=== PATIENT | male | born 1985 | race Caucasian/White ===

== ENCOUNTER → 2017-07-20 | Outpatient (CLI) | payer OTHER | LOC: M WUC 18:43 | DX: M79.641 Pain in right hand (principal) | CPT/HCPCS: 73130 ==

== ENCOUNTER → 2019-01-11 | Outpatient (REF) | payer OTHER ==
[2019-01-12 14:49] LABS: ALBUMIN 4.1 GM/DL (3.2-5.2); ALT/SGPT 26 U/L (12-78); BILIRUBIN,TOTAL 1.6 MG/DL (0.2-1.0); BLOOD UREA NITROGEN 10 MG/DL (7-18); CALCIUM LEVEL 8.8 MG/DL (8.5-10.1); CARBON DIOXIDE LEVEL 29 MEQ/L (21-32); CHLORIDE LEVEL 107 MEQ/L (98-107); CHOLESTEROL LEVEL 146 MG/DL (<200); CHOLESTEROL RISK RATIO 3.476 (<5); FREE T4 1.15 NG/DL (0.76-1.46); GLOMERULAR FILTRATION RATE > 60.0 (>60); GLUCOSE, FASTING 90 MG/DL (70-100); HDL CHOLESTEROL 42 MG/DL (>40); LDL CHOLESTEROL 81 MG/DL (<100); NON-HDL-C 104 MG/DL; PHOSPHORUS LEVEL 3.2 MG/DL (2.5-4.9); POTASSIUM SERUM 3.9 MEQ/L (3.5-5.1); SODIUM LEVEL 141 MEQ/L (136-145); THYROID STIMULATING HORMONE 0.858 uIU/ML (0.358-3.740); TOTAL PROTEIN 6.8 GM/DL (6.4-8.2); TRIGLYCERIDES LEVEL 116 MG/DL (<150)
[2019-01-14 00:07] LABS: Lyme Disease IgG/IgM Antibodie <0.91 ISR (0.00-0.90); Lyme Disease IgM Ab Quantitati <0.80 index (0.00-0.79)
== END ==
LOC: M LABDRWAD 19:20
PROVIDERS: ATTEND Psychiatry & Neurology Child & Adolescent Psychiatry
DX: F33.9 Major depressive disorder, recurrent, unspecified (principal)

== ENCOUNTER → 2019-01-21 | Outpatient (CLI) | payer OTHER ==
--- NOTE | 2019-01-21 18:46 | ECGEPIP ---
[facility] Test Date: 2019-01-21 Pat Name: TAM MCELROY Department: Room: - Gender: Male Police Chief: KARINE : 1985 Requested By: Sonny Wynn Order Number: [id number] Reading MD: Fransisco Norman Measurements Intervals [place] Rate: 68 P: 55 MS: 141 QRS: 70 QRSD: 90 T: 50 QT: 375 QTc: 401 Interpretive Statements SINUS RHYTHM WITH SINUS ARRHYTHMIA Early repolarization. No prior ECG available for comparison at the time of interpretation. Electronically Signed on 01-21-2019 18:46:07 EDT by Fransisco Norman
== END ==
LOC: M LAB 09:17
PROVIDERS: ATTEND Psychiatry & Neurology Child & Adolescent Psychiatry
DX: F33.9 Major depressive disorder, recurrent, unspecified (principal)

== ENCOUNTER → 2019-01-31 | Outpatient (REF) | payer OTHER ==
[2019-01-31 17:56] LABS: BASO % 0.4 % (0.0-1.0); EOS # 0.1 10^3/uL (0.0-0.5); EOS % 1.1 % (0.0-3.0); HEMATOCRIT 49.2 % (42.0-52.0); HEMOGLOBIN 17.4 g/dl (13.5-17.5); LYMPH # 2.5 10^3/uL (1.5-5.0); LYMPH % 23.9 % (24.0-44.0); MEAN CORPUSCULAR HEMOGLOBIN 32.3 pg (27.0-33.0); MEAN CORPUSCULAR HGB CONC 35.4 g/dl (32.0-36.5); MEAN CORPUSCULAR VOLUME 91.4 fl (80.0-96.0); MONO # 0.6 10^3/uL (0.0-0.8); MONO % 5.2 % (0.0-5.0); NEUTROPHILS # 7.3 10^3/uL (1.5-8.5); NEUTROPHILS % 69.1 % (36.0-66.0); PLATELET COUNT, AUTOMATED 246 10^3/uL (150-450); RED BLOOD COUNT 5.38 10^6/uL (4.30-6.10); WHITE BLOOD COUNT 10.5 10^3/uL (4.0-10.0)
[2019-01-31 18:12] LABS: HEMOGLOBIN A1c 4.7 %
[2019-01-31 19:09] LABS: ERYTHROCYTE SEDIMENTATION RATE 2 mm/hr (0-15)
== END ==
LOC: M LABDRWAD 16:37
PROVIDERS: ATTEND Psychiatry & Neurology Child & Adolescent Psychiatry
DX: F33.9 Major depressive disorder, recurrent, unspecified (principal)

== ENCOUNTER → 2019-02-16 | Outpatient (REF) | payer OTHER | LOC: M SFHCADAM 14:52 | PROVIDERS: ATTEND Physician Assistant | DX: M25.541 Pain in joints of right hand (principal) ==

== ENCOUNTER → 2019-07-25 | Outpatient (CLI) | payer OTHER ==
[~2019-07-25] MED LIST: NICO7DIS24 TD; OXYC1TAB23 PO; SERT-138 PO
== END ==
LOC: M LABSMTC 11:33
PROVIDERS: ATTEND Anesthesiology
DX: Z01.818 Encounter for other preprocedural examination (principal); Z11.59 Encounter for screening for other viral diseases

== ENCOUNTER 2019-07-26 10:35 | Day surgery (SDC) | payer OTHER ==
[~2019-07-26] VITALS: Ht 172.7 cm; Wt 70.2 kg
[~2019-07-26 10:35] MED LIST changes: +LIDOCAINE 2% 100MG/5ML SDV (FOR ANES.) As Ordered ONE; +LR 1,000 ML IV ONE; +MIDAZOLAM INJ 2MG/2ML VIAL (J2250 PER 1MG) As Ordered ONE; +ONDANSETRON 4MG/2ML VIAL As Ordered ONE; +ceFAZolin SOD 2 GM in IV 1 EA IV ONE; +dexameTHASONE 4 MG/ML 1ML VIAL (J1100 PER 1MG) As Ordered ONE; +fentaNYL 100 MCG/2 ML INJECTION (J3010) As Ordered ONE; +propofoL 200 MG/20 ML VIAL As Ordered ONE
[2019-07-26] MEDS ORDERED: PHENYLephrine HCL 500 MCG/5 ML (100MCG/ML) SYRINGE (J2370) As Ordered ONE (10:58)
[2019-07-26] MEDS ORDERED: LIDOCAINE 2% 100MG/5ML SDV (FOR ANES.) As Ordered ONE (11:46)
[2019-07-26] MEDS ORDERED: BUPIVACAINE/EPIN 0.25% 30 ML VIAL As Ordered ONE (11:57)
[2019-07-26] MEDS ORDERED: HYDROmorphone HCL 2 MG/ML 1ML VIAL (J1170) As Ordered ONE (12:54)
[2019-07-26] MEDS ORDERED: ROCURONIUM BROMIDE 50 MG/5 ML VIAL As Ordered ONE (13:06)
[2019-07-26] MEDS ORDERED: ACETAMINOPHEN 1000MG 100ML IV BTL (OFIRMEV) (J0131 PER 10MG) As Ordered ONE (14:13)
[2019-07-26] MEDS ORDERED: SUGAMMADEX SODIUM 500 MG/5 ML VIAL (BRIDION) As Ordered ONE (14:15)
[2019-07-26] MEDS ORDERED: KETOROLAC 60 MG/2 ML VIAL As Ordered ONE (14:15)
[2019-07-26] MEDS ORDERED: KETOROLAC 30 MG/ML 1ML VIAL IV PRN (14:19)
[2019-07-26] MEDS ORDERED: METOCLOPRAMIDE INJ 10MG/2ML VIAL (J2765 PER 1) IV PRN (15:00)
[2019-07-26] MEDS ORDERED: LR 1,000 ML IV SCH (15:00)
[2019-07-26] MEDS ORDERED: oxyCODONE 5MG TAB PO PRN (15:00)
[2019-07-26] MEDS ORDERED: ONDANSETRON 4MG/2ML VIAL IV PRN (15:00)
[2019-07-26] MEDS: fentaNYL 100 MCG/2 ML INJECTION (J3010) IV PRN ×2 (15:01→15:24)
[2019-07-26] MEDS: oxyCODONE 5MG TAB PO PRN ×2 (15:02→15:43)
--- NOTE | 2019-07-26 15:08 | REP ---
C-ARM VIEWS RIGHT CLAVICLE: Two C-arm views right clavicle performed. There is metallic internal fixation in the clavicle. 14 seconds of fluoroscopy time utilized. Electronically Signed by Saad Ribiero MD 07/26/2019 03:14 P
--- NOTE | 2019-07-26 15:41 | REP ---
RIGHT CLAVICLE: Two views of the right clavicle are performed. Metallic internal fixation is seen in the mid to distal right clavicle. The osseous structures are well aligned. Electronically Signed by Saad Ribeiro MD 07/26/2019 03:48 P
[2019-07-26 17:20] VITALS: BP 138/72
--- NOTE | 2019-07-27 11:59 | RO ---
DATE OF PROCEDURE: 07/26/2019 PREOPERATIVE DIAGNOSIS: Right clavicle fracture. POSTOPERATIVE DIAGNOSIS: Right clavicle fracture. PROCEDURE: Open reduction, internal fixation of the clavicle. SURGEON: Dr. Kolby Mckeon FLUID J[employer] CUTTER OPERATOR: Awilda Harvey (who was essential for retraction and manipulation of patient during the procedure) ANESTHESIA: General. COMPLICATIONS: None. BLOOD LOSS: 100 mL. PREOPERATIVE ANTIBIOTICS: 2 grams of Ancef. INDICATIONS: This is a 33-year-old male who suffered a completely displaced with intercalary piece of his mid shaft clavicle fracture with significant shortening. We discussed the risks and benefits of operative intervention, including, but not limited to, infection, damage to surrounding structures, incomplete relief, malunion, and nonunion. The patient wished to proceed. OPERATIVE DESCRIPTION: Patient was brought back to the operating room (OR) in the supine position and underwent general anesthesia, at which point he was placed into the beach chair position. Right arm was then prepped and draped in the usual fashion. We had time-out, confirming site, side, and surgery. We then made a longitudinal incision along the length of the clavicle from the anterolateral aspect to the acromioclavicular (AC) joint to the sternoclavicular joint, sharply dissected subcutaneous tissues, careful to control superficial bleeding. Dissected through platysma, encountering the fracture site. We then thoroughly mobilized the proximal and distal extents of the fracture. Then identified a significant intercalary piece. Due to being about 2-1/2 weeks from the date of injury, we had to remove significant callus, at which point we used the intercalary piece and reduced it to the medial portion of the clavicle using [id number] reduction clamp. We then placed a 2.7 lag screw to hold it into place, at which point we were able to directly reduce the fracture to the lateral portion using a lobster claw clamp and then placed an additional 2.7 lag screw to hold the clavicle in place. At this point, the clamps were removed. The fixation was stable. We then placed a neutralization plate, a 3.5 recon, and contoured it to the patient. Placed cortical screws compressing the plate to the bone at both the medial and lateral aspect of the fracture plane and placed two additional locking screws on either side for hybrid fixation, at which point we irrigated the wound thoroughly, took an x-ray of the AC joint to ensure no screw penetration into the AC joint, which was confirmed. We then closed the platysma with #2-0 Vicryl, subcutaneous tissue with #2-0 Vicryl, skin with #3-0 Monocryl, Mastisol, Steris, gauze, and Tegaderm. Patient was placed in a sling and extubated and taken to postanesthesia care unit (PACU) in stable condition. POSTOPERATIVE PLAN: Patient will work on range of motion and pain control and keep the dressing clean, dry, intact. We will see him in the office in 2 weeks postoperatively. RUCHI
== END 2019-07-26 17:30 | disposition home or self-care (01) ==
LOC: M SDC 10:35
PROVIDERS: ATTEND Orthopaedic Surgery Hand Surgery
DX: S42.021A Displaced fracture of shaft of right clavicle, initial encounter for closed fracture (principal); X58.XXXA Exposure to other specified factors, initial encounter; Y92.89 Other specified places as the place of occurrence of the external cause; K21.9 Gastro-esophageal reflux disease without esophagitis; F17.210 Nicotine dependence, cigarettes, uncomplicated; Z79.899 Other long term (current) drug therapy; Z79.891 Long term (current) use of opiate analgesic
CPT/HCPCS: 23515; 73000; 76000; C1713; J0131; J0690; J1100; J1170; J1885; J2250; J2370; J2405; J3010